=== PATIENT | male | born 1950 | race American Indian/Alaskan Native ===

== ENCOUNTER 2017-02-18 07:21 | Emergency (ER) | payer SELFPAY ==
[2017-02-18 08:14] VITALS: BP 200/111
== END 2017-02-18 19:40 | disposition left against medical advice (07) ==
LOC: ED 07:21
DX: Z53.21 Procedure and treatment not carried out due to patient leaving prior to being seen by health care provider (principal)

== ENCOUNTER 2020-07-10 11:48 | Inpatient (IN) | payer MEDICARE ==
[2020-07-10] MEDS ORDERED: SODIUM CHLORIDE 0.9% 1000 ML 1,000 ML IV ONE (11:53)
[2020-07-10 13:14] LABS: Basophils # (Auto) 0.1 K/mm3 (0.0-0.1); Basophils % (Auto) 0.4 % (0.0-1.8); Eosinophils % (Auto) 0.2 % (0.0-4.3); Lymphocytes # (Auto) 2.1 K/mm3 (1.2-5.4); Lymphocytes % (Auto) 15.7 % (13.4-35.0); Mean Corpuscular HGB Conc 31 % (32-34); Mean Corpuscular Volume 88 fl (84-94); Monocytes # (Auto) 0.5 K/mm3 (0.0-0.8); Monocytes % (Auto) 4.1 % (0.0-7.3); Platelet Count 203 K/mm3 (140-440); Red Blood Count 5.45 M/mm3 (3.65-5.03); Red Cell Distribution Width 15.3 % (13.2-15.2)
[2020-07-10 13:22] LABS: Hematocrit 47.8 % (35.5-45.6); Hemoglobin 14.8 gm/dl (11.8-15.2)
[2020-07-10 13:31] LABS: INR 1.09 (0.87-1.13)
[2020-07-10 14:10] LABS: Albumin 3.9 g/dL (3.9-5); Calcium 9.6 mg/dL (8.4-10.2)
[2020-07-10] MEDS ORDERED: DEXTROSE 50% IN WATER (25GM) 50 ML SYRINGE IV PRN (15:17)
[2020-07-10] MEDS ORDERED: INSULIN REGULAR, HUMAN 100 UNITS in SODIUM CHLORIDE 0.9% 99 ML IV SCH (16:00)
[2020-07-10] MEDS: POTASSIUM CHLORIDE 10 MEQ 10 MEQ/100 ML BAG IV SCH (19:53)
[2020-07-10] MEDS ORDERED: D5W/0.45% NACL/KCL 20 MEQ 20 MEQ/1,000 ML BAG IV SCH (20:00)
[2020-07-10 20:47] LABS: Calcium 9.7 mg/dL (8.4-10.2)
[2020-07-10] MEDS ORDERED: LORazepam 2 MG/ML VIAL IV PRN ×3 (22:46)
[2020-07-11 00:02] LABS: BUN/Creatinine Ratio 29; Blood Urea Nitrogen 38 mg/dL (9-20); Calcium 9.5 mg/dL (8.4-10.2); Hemolysis Index 30
[2020-07-11] MEDS ORDERED: NICOTINE 21 MG/24 HR PATCH TD ONE (00:23)
[2020-07-11 02:27] LABS: BUN/Creatinine Ratio 27; Blood Urea Nitrogen 35 mg/dL (9-20); Calcium 9.5 mg/dL (8.4-10.2); Hemolysis Index 14
[2020-07-11] MEDS: INSULIN REGULAR, HUMAN 100 UNITS in SODIUM CHLORIDE 0.9% 99 ML IV SCH ×4 (03:08→13:29)
[2020-07-11] MEDS ORDERED: POTASSIUM PHOSPHATE 30 MMOL in SODIUM CHLORIDE 0.9% 500 ML 500 ML IV ONE (03:17)
[2020-07-11] MEDS ORDERED: DEXTROSE 5% IN WATER 1,000 ML IV SCH (04:00)
[2020-07-11 05:33] LABS: BUN/Creatinine Ratio 25; Blood Urea Nitrogen 32 mg/dL (9-20); Calcium 9.4 mg/dL (8.4-10.2); Hemolysis Index 8
[2020-07-11 06:07] LABS: Bacteria,Urine 1+ /HPF (Negative); Bilirubin,Urine NEG (Negative); Blood,Urine NEG (Negative); Color,Urine Yellow (Yellow); Mucus,Urine FEW /HPF; Protein,Urine <15 mg/dL mg/dL (Negative); Urobilinogen,Urine < 2.0 mg/dL (<2.0)
[2020-07-11 06:10] LABS: Creatinine,Urine 89.6 mg/dL (0.1-20.0); Microalbumin/Creatinine Ratio 13.3 ug/mg
[2020-07-11] MEDS ORDERED: INSULIN NPH/REGULAR 70/30 INJ SUB-Q SCH (08:00)
[2020-07-11 09:03] LABS: Hematocrit 45.4 % (35.5-45.6); Hemoglobin 14.4 gm/dl (11.8-15.2); Mean Corpuscular HGB Conc 32 % (32-34); Mean Corpuscular Volume 87 fl (84-94); Platelet Count 172 K/mm3 (140-440); Red Blood Count 5.24 M/mm3 (3.65-5.03)
[2020-07-11] MEDS: hydrALAZINE 20 MG/1 ML INJ IV PRN ×2 (09:20→23:22)
[2020-07-11] MEDS: METOPROLOL TARTRATE 25 MG TAB PO SCH ×2 (11:11→21:51)
[2020-07-11] MEDS ORDERED: SODIUM CHLORIDE 0.45% 1000 ML 1,000 ML IV SCH (12:00)
[2020-07-11 12:36] LABS: BUN/Creatinine Ratio 24; Blood Urea Nitrogen 24 mg/dL (9-20); Calcium 7.6 mg/dL (8.4-10.2); Hemolysis Index 36
[2020-07-11] MEDS ORDERED: SODIUM CHLORIDE 0.45% IV SCH (13:02)
[2020-07-11] MEDS ORDERED: POTASSIUM CHLORIDE IV SCH (13:02)
[2020-07-11] MEDS: POTASSIUM CHLORIDE 10 MEQ 10 MEQ/100 ML BAG IV SCH ×3 (13:20→14:49)
[2020-07-11] MEDS ORDERED: DEXTROSE 50% IN WATER (25GM) 50 ML SYRINGE IV PRN (13:26)
[2020-07-11] MEDS ORDERED: INSULIN LISPRO 100 UNIT/ML SUB-Q SCH (16:30)
[2020-07-11] MEDS: INSULIN LISPRO 100 UNIT/ML SUB-Q SCH ×2 (16:33→21:55)
[2020-07-11 19:17] LABS: BUN/Creatinine Ratio 19; Blood Urea Nitrogen 21 mg/dL (9-20); Calcium 8.8 mg/dL (8.4-10.2); Hemolysis Index 25
[2020-07-11 19:19] LABS: Creatine Kinase MB 4.7 ng/mL (0.0-4.0)
[2020-07-11] MEDS: HEPARIN 5,000 UNIT/1 ML VIAL SUB-Q SCH (21:51)
[2020-07-11] MEDS ORDERED: INSULIN GLARGINE 100 UNITS/ML SUB-Q SCH (22:00)
[2020-07-12 02:03] LABS: BUN/Creatinine Ratio 18; Blood Urea Nitrogen 22 mg/dL (9-20); Hemolysis Index 155
[2020-07-12] MEDS: hydrALAZINE 20 MG/1 ML INJ IV PRN (05:34)
[2020-07-12] MEDS ORDERED: SODIUM CHLORIDE 0.45% 1000 ML 1,000 ML IV SCH (07:17)
[2020-07-12] MEDS ORDERED: SODIUM POLYSTYRENE 15 GM/60 ML ORAL LIQD PO ONE (07:17)
[2020-07-12] MEDS ORDERED: LACTATED RINGERS 1,000 ML IV ONE (07:51)
[2020-07-12] MEDS ORDERED: INSULIN REGULAR, HUMAN 100 UNITS in SODIUM CHLORIDE 0.9% 99 ML IV SCH (08:00)
[2020-07-12 08:36] LABS: BUN/Creatinine Ratio 18; Blood Urea Nitrogen 25 mg/dL (9-20); Calcium 9.3 mg/dL (8.4-10.2); Hemolysis Index 79
[2020-07-12] MEDS: HEPARIN 5,000 UNIT/1 ML VIAL SUB-Q SCH ×2 (09:01→21:24)
[2020-07-12] MEDS: METOPROLOL TARTRATE 25 MG TAB PO SCH ×2 (09:01→21:23)
[2020-07-12 09:52] LABS: ABG HCO3 15.1 mmol/L (20.0-26.0); ABG Methemoglobin 0.6 % (0.0-1.5); ABG Oxygen Saturation 98.9 % (95.0-99.0); ABG PCO2 31.2 mm Hg; ABG PH 7.302 pH Units (7.350-7.450); ABG PO2 159.1 mm Hg (80.0-90.0)
[2020-07-12 14:17] LABS: BUN/Creatinine Ratio 18; Blood Urea Nitrogen 22 mg/dL (9-20); Calcium 8.9 mg/dL (8.4-10.2); Hemolysis Index 32
[2020-07-12] MEDS ORDERED: NORepinephrine/NS 4 MG-250 ML 4 MG/250 ML BAG IV ONE (15:05)
[2020-07-12] MEDS ORDERED: LACTATED RINGERS 2,000 ML ONE (15:17)
[2020-07-12] MEDS ORDERED: LACTATED RINGERS 1,000 ML IV SCH (15:30)
[2020-07-12] MEDS: NORepinephrine/NS 4 MG-250 ML 4 MG/250 ML BAG IV SCH (15:30)
[2020-07-12] MEDS ORDERED: fentaNYL 100 MCG/2 ML INJ IV PRN (15:31)
[2020-07-12 15:39] LABS: ABG Base Excess -7.9 mmol/L (-2.0-3.0); ABG HCO3 27.5 mmol/L (20.0-26.0); ABG Methemoglobin 0.6 % (0.0-1.5); ABG Oxygen Saturation 89.7 % (95.0-99.0); ABG PCO2 132.5 mm Hg; ABG PO2 94.3 mm Hg (80.0-90.0)
[2020-07-12] MEDS ORDERED: LORazepam 2 MG/ML VIAL ONE ×2 (15:39→15:43)
[2020-07-12 15:43] LABS: ABG PH 6.936 pH Units (7.350-7.450)
[2020-07-12] MEDS ORDERED: HALOPERIDOL LACTATE 5 MG/1 ML INJ IV PRN (15:44)
[2020-07-12] MEDS ORDERED: LORazepam 2 MG/ML VIAL IV PRN ×3 (15:44)
[2020-07-12] MEDS ORDERED: LORazepam 2 MG/ML VIAL IV ONE (15:47)
[2020-07-12] MEDS ORDERED: SODIUM BICARB 8.4% 50 MEQ/50 ML SYRINGE IV ONE ×3 (15:48→15:50)
[2020-07-12] MEDS ORDERED: fentaNYL DRIP Premix 2,000 MCG/100 ML BAG IV SCH (16:00)
[2020-07-12] MEDS ORDERED: DEXTROSE 5% IN WATER 1,000 ML IV SCH (16:00)
[2020-07-12] MEDS ORDERED: D5W/0.45% NACL 1,000 ML IV SCH (16:00)
[2020-07-12] MEDS: levETIRAcetam 1,000 MG in DEXTROSE 5% IN WATER 100 ML IV SCH ×2 (16:45→21:24)
[2020-07-12 18:55] LABS: BUN/Creatinine Ratio 16; Blood Urea Nitrogen 21 mg/dL (9-20); Calcium 8.4 mg/dL (8.4-10.2); Hemolysis Index 9
[2020-07-12] MEDS: ACETAMINOPHEN 325 MG/10.15 ML ORAL LIQD UNIT DOSE FEEDTUBE PRN (23:49)
[2020-07-13 00:55] LABS: BUN/Creatinine Ratio 16; Blood Urea Nitrogen 21 mg/dL (9-20); Calcium 8.2 mg/dL (8.4-10.2); Hemolysis Index 6
[2020-07-13 05:28] LABS: Amphetamine Screen,Urine PRESUMPTIVE NEGATIVE; Benzodiazepines Screen,Urine PRESUMPTIVE NEGATIVE; Cannabinoid Screen,Urine PRESUMPTIVE NEGATIVE; Cocaine Screen,Urine PRESUMPTIVE NEGATIVE; Creatinine,Urine 176.2 mg/dL (0.1-20.0); Methadone Screen,Urine PRESUMPTIVE NEGATIVE; Opiate Screen,Urine PRESUMPTIVE NEGATIVE
[2020-07-13] MEDS: ACETAMINOPHEN 325 MG/10.15 ML ORAL LIQD UNIT DOSE FEEDTUBE PRN ×2 (05:55→11:23)
[2020-07-13 06:41] LABS: Calcium 8.5 mg/dL (8.4-10.2)
[2020-07-13] MEDS ORDERED: SODIUM CHLORIDE 0.9% 1000 ML 1,000 ML IV SCH (08:30)
[2020-07-13] MEDS ORDERED: ASPIRIN 325 MG TAB FEEDTUBE STA (10:12)
[2020-07-13] MEDS ORDERED: LIPASE 10,500/PROTEASE 25,000/AMYLASE 43,750 (UNITS) DR CAP FEEDTUBE PRN (11:18)
[2020-07-13] MEDS ORDERED: SODIUM BICARBONATE 325 MG TAB FEEDTUBE PRN (11:18)
[2020-07-13] MEDS ORDERED: SIMPLE SYRUP 15 ML FEEDTUBE PRN ×2 (11:18)
[2020-07-13] MEDS: HEPARIN 5,000 UNIT/1 ML VIAL SUB-Q SCH ×2 (11:24→21:59)
[2020-07-13] MEDS: METOPROLOL TARTRATE 25 MG TAB PO SCH ×2 (11:25→21:15)
[2020-07-13] MEDS: FAMOTIDINE 20 MG/2 ML INJ IV SCH ×2 (11:26→21:12)
[2020-07-13] MEDS: levETIRAcetam 1,000 MG in DEXTROSE 5% IN WATER 100 ML IV SCH ×2 (13:47→21:12)
[2020-07-13] MEDS: INSULIN LISPRO 100 UNIT/ML SUB-Q SCH ×3 (13:48→18:22)
[2020-07-13 17:08] LABS: Calcium 7.9 mg/dL (8.4-10.2)
[2020-07-13] MEDS ORDERED: INSULIN LISPRO 100 UNIT/ML SUB-Q ONE ×2 (17:49→23:37)
[2020-07-13] MEDS: NORepinephrine/NS 4 MG-250 ML 4 MG/250 ML BAG IV SCH (18:15)
[2020-07-14 00:39] LABS: Calcium 7.4 mg/dL (8.4-10.2)
[2020-07-14] MEDS: INSULIN LISPRO 100 UNIT/ML SUB-Q SCH ×4 (01:54→05:59)
[2020-07-14 05:00] LABS: Hematocrit 41.1 % (35.5-45.6); Hemoglobin 13.4 gm/dl (11.8-15.2); Mean Corpuscular HGB Conc 33 % (32-34); Mean Corpuscular Volume 88 fl (84-94); Red Blood Count 4.67 M/mm3 (3.65-5.03); Red Cell Distribution Width 15.9 % (13.2-15.2)
[2020-07-14 05:04] LABS: Platelet Count 53 K/mm3 (140-440)
[2020-07-14 05:24] LABS: Calcium 8.5 mg/dL (8.4-10.2); Chol/HDL Ratio 1.78 %
[2020-07-14] MEDS: NORepinephrine/NS 4 MG-250 ML 4 MG/250 ML BAG IV SCH ×2 (07:37)
[2020-07-14] MEDS ORDERED: VASOPRESSIN 20 UNIT in SODIUM CHLORIDE 0.9% 100 ML IV SCH (09:00)
[2020-07-14] MEDS ORDERED: ASPIRIN 325 MG TAB PO SCH (10:00)
[2020-07-14] MEDS ORDERED: FAMOTIDINE 20 MG TAB PO SCH (10:00)
[2020-07-14 10:37] VITALS: BP 254/118
[2020-07-14] MEDS ORDERED: SODIUM BICARB 8.4% 50 MEQ/50 ML SYRINGE IV ONE (12:19)
[2020-07-14] MEDS ORDERED: EPINEPHrine 1 MG/10 ML SYRINGE ONE (12:19)
[2020-07-14] MEDS ORDERED: AMIODARONE 150 MG/3 ML INJ IV ONE (12:19)
== END 2020-07-14 12:26 | DRG 637 ==
LOC: ED 11:48 → CC1 15:02
PROVIDERS: ADMIT Internal Medicine; ATTEND Internal Medicine
PROC: 5A09357 Assistance with Respiratory Ventilation, Less than 24 Consecutive Hours, Continuous Positive Airway Pressure (ICD-10-PCS; 2020-07-11)
PROC: 4A033R1 Measurement of Arterial Saturation, Peripheral, Percutaneous Approach (ICD-10-PCS; principal; 2020-07-12)
PROC: 5A1945Z Respiratory Ventilation, 24-96 Consecutive Hours (ICD-10-PCS; 2020-07-12)
DX: E11.00 Type 2 diabetes mellitus with hyperosmolarity without nonketotic hyperglycemic-hyperosmolar coma (NKHHC) (principal); G93.41 Metabolic encephalopathy; J96.01 Acute respiratory failure with hypoxia; N17.0 Acute kidney failure with tubular necrosis; I63.9 Cerebral infarction, unspecified; E87.0 Hyperosmolality and hypernatremia; E87.2 Acidosis; Z20.822 Contact with and (suspected) exposure to COVID-19; E86.0 Dehydration; E83.42 Hypomagnesemia; R56.9 Unspecified convulsions; E87.6 Hypokalemia; D72.829 Elevated white blood cell count, unspecified; E87.5 Hyperkalemia; I10 Essential (primary) hypertension; F17.200 Nicotine dependence, unspecified, uncomplicated; E83.39 Other disorders of phosphorus metabolism; Z96.41 Presence of insulin pump (external) (internal); Z79.899 Other long term (current) drug therapy; Z79.891 Long term (current) use of opiate analgesic; Z79.01 Long term (current) use of anticoagulants
CPT/HCPCS: 31500; 36415; 36600; 70450; 71045; 74018; 76770; 80048; 80053; 80061; 80307; 80320; 81001; 82043; 82140; 82550; 82553; 82570; 82803; 82805; 82962; 83036; 83735; 83930; 84100; 84300; 84443; 84484; 85025; 85027; 85610; 87040; 87086; 93005; 93880; 94002; 94003; 94660; 96365; 96375; G0378; A9270-GY; G0480; J0171; J0282; J0360; J1644; J1815; J1953; J2060; J3010; J3480; J7030; J7040; J7070; J7120; U0003